=== PATIENT | male | born 1980 | race Caucasian/White ===

== ENCOUNTER 2023-12-15 07:43 | Emergency (ER) | payer OTHER, BC ==
[2023-12-15] MEDS: ceFAZolin 2 GM in Sodium Chloride 0.9% 50 ML IV ONE (08:22)
[2023-12-15] MEDS: Lidocaine 1% 5 ML VIAL INJECT ONE (08:23)
[2023-12-15] MEDS: Bacitracin Oint 28.35 GM Tube TOP STA (09:02)
== END 2023-12-15 09:04 | disposition home or self-care (01) ==
LOC: MW.ED 07:43
DX: S61.214A Laceration without foreign body of right ring finger without damage to nail, initial encounter (principal); S67.194A Crushing injury of right ring finger, initial encounter; W20.8XXA Other cause of strike by thrown, projected or falling object, initial encounter; Z75.8 Other problems related to medical facilities and other health care
CPT/HCPCS: 12001; 73130; 96365; 99283; A9270; J0690; J3490